=== PATIENT | male | born 1985 | race Caucasian/White ===

== ENCOUNTER 2018-02-27 21:27 | Emergency (ER) | payer OTHER ==
[2018-02-27 21:41] VITALS: BP 134/84
--- NOTE | 2018-02-27 21:57 | EDPHY ---
H & P Time Seen by Provider: 02/27/18 21:32 HPI/ROS: 32 yo M presents with laceration to right index finger, he was reaching into a recycling bin to shut it, and cut his hand on a lid. Tetanus up to date. Review of systems as per hpi General no fever no chills no weakness HEENT no eye pain no eye discharge. 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 Smoking Status: Never smoked Physical Exam: 32 yo M Alert and oriented in no acute distress nontoxic appearance, afebrile Atraumatic normocephalic Neck no JVD Lungs clear to auscultation, no respiratory distress Heart regular rate and rhythm Extremities no cyanosis clubbing edema right hand right index finger, 2.5 cm laceration to lateral aspect of right index finger from, no tendon involvement Imp sutured repair dressing and splint plan dc home return in 10-12 days for suture removal Constitutional: Initial Vital Signs Temperature (C) 37 C 02/27/18 21:39 Heart Rate 99 02/27/18 21:39 Respiratory Rate 16 02/27/18 21:39 Blood Pressure 134/84 H 02/27/18 21:39 O2 Sat (%) 93 02/27/18 21:39 O2 Delivery Mode Room Air Allergies/Adverse Reactions: No Known Allergies Allergy (Unverified 02/27/18 21:38) Home Medications: Medication Instructions Recorded Cetirizine [ZyrTEC 10 mg (*)] 02/27/18 Medical Decision Making Procedures: Procedure note-laceration The wound was irrigated with copious amounts of saline. Lidocaine 1% was used for local anesthetic. 7 simple interrupted sutures were placed. 5-0 Ethilon was used. Patient tolerated procedure well. ED Course/Re-evaluation: pt seen and evaluated for finger laceration sutured repair imp finger laceration, right index plan sutured, splinted return in 10-12 days for suture removal Differential Diagnosis: Differential diagnosis considered but not limited to: Finger laceration, finger laceration with tendon involvement - Data Points Medications Given: Discontinued Medications Diphtheria/Tetanus/Acell Pertussis (Boostrix) 0.5 ml IM .ONCE ONE Stop: 02/27/18 22:25 Last Admin: 02/27/18 22:29 Dose: 0.5 ml Departure - Departure Disposition: Home, Routine, Self-Care Clinical Impression: Finger laceration Condition: Good Instructions: Care For Your Stitches (ED), Finger Laceration (ED) Referrals: Patient,NotPresent [Primary Care Provider] - As per Instructions
[2018-02-27] MEDS ORDERED: TDAP ADULT 0.5 ML INJ (BOOSTRIX) IM ONE (22:24)
== END 2018-02-27 22:33 | disposition home or self-care (01) ==
LOC: CED 21:27
PROC: 0HQFXZZ Repair Right Hand Skin, External Approach (ICD-10-PCS; principal; 2018-02-27)
DX: S61.210A Laceration without foreign body of right index finger without damage to nail, initial encounter (principal); Z23 Encounter for immunization; W26.8XXA Contact with other sharp object(s), not elsewhere classified, initial encounter; Y93.89 Activity, other specified; Y92.9 Unspecified place or not applicable; Y99.9 Unspecified external cause status